=== PATIENT | female | born 1995 | race Two or more races ===

== ENCOUNTER 2020-08-27 21:35 | Inpatient (IN) | payer OTHER ==
[2020-08-27] MEDS ORDERED: ELECTROLYTE-148 SOLN 1,000 ML IV SCH (23:30)
[2020-08-28 00:46] LABS: BASO % 0.1 % (0-2.0); EOS % 0.9 % (0-4.5); HEMATOCRIT 33.1 % (32.4-45.2); LYMPH % 25.6 % (8-40); MCH 27.5 pg (25.7-33.7); MCHC 33.3 g/dl (32.0-36.0); MEAN CELL VOLUME 82.7 fl (80-96); MEAN PLT VOLUME 11.1 fl (7.5-11.1); NEUT % 66.4 % (42.8-82.8); PLATELET COUNT 168 K/MM3 (134-434); RDW 13.8 % (11.6-15.6); WHITE BLOOD COUNT 10.6 K/mm3 (4.0-10.0)
[2020-08-28] MEDS ORDERED: METHYLERGONOVINE MALEATE 0.2 MG/1 ML AMP IM PRN (00:58)
[2020-08-28] MEDS ORDERED: BENZOCAINE 20% 57 GM BOTTLE TP PRN (00:58)
[2020-08-28] MEDS ORDERED: diphenhydrAMINE HCL 25 MG CAPSULE (FP) PO PRN (00:58)
[2020-08-28] MEDS ORDERED: BENZOCAINE 28 GM HEMORRHOIDAL OINTMENT PR PRN (00:58)
[2020-08-28] MEDS ORDERED: WITCH HAZEL 50% (TUCKS) 40 PAD/JAR PAD TP PRN (00:58)
[2020-08-28 01:11] LABS: BLOOD UREA NITROGEN 11.8 mg/dL (7-18); CALCIUM 8.6 mg/dL (8.5-10.1)
[2020-08-28 01:15] LABS: CREATININE 0.7 mg/dL (0.55-1.3)
[2020-08-28] MEDS ORDERED: CEFAZOLIN 2 GM/D5W 2 GM/50 ML ML IVPB ONE (01:25)
[2020-08-28] MEDS ORDERED: morphine SULFATE/PF 1 MG/2 ML (2cc Syringe - QUVA) ONE (01:27)
[2020-08-28] MEDS ORDERED: OXYTOCIN 10 UNITS/ML VIAL ONE (01:49)
[2020-08-28] MEDS ORDERED: ONDANSETRON 4 MG/2 ML VIAL ONE (01:49)
[2020-08-28] MEDS: OXYTOCIN 20 UNITS in 0.9% NS 20 UNIT/1,000 ML INFUS.BAG IV SCH ×2 (01:55→09:45)
[2020-08-28] MEDS ORDERED: AZITHROMYCIN IVPB 500 MG/250 ML BAG IVPB ONE (01:58)
[2020-08-28 02:39] VITALS: BMI 28.2
[2020-08-28 02:39] LABS: CORD BASE EXCESS -1.8 mmol/L (0-2); CORD BASE EXCESS -2.8 mmol/L (0-2); CORD HCO3 23.6 mmHg (20-29); CORD HCO3 24.7 mmHg (20-29); CORD PCO2 47.5 mmHg (30-78); CORD PCO2 48.9 mmHg (30-78); CORD pH 7.314 (7.14-7.44); CORD pH 7.321 (7.14-7.44)
[2020-08-28] MEDS ORDERED: OXYTOCIN 20 UNITS in 0.9% NS 20 UNIT/1,000 ML INFUS.BAG IV ONE (03:20)
[2020-08-28 03:46] LABS: HIV INTERPRETATION NEGATIVE (NEGATIVE)
[2020-08-28] MEDS: IBUPROFEN 800 MG/8 ML IJ IVPB PRN ×2 (04:59→12:53)
[2020-08-28 08:30] LABS: INR 0.88 (0.83-1.09); PROTHROMBIN TIME (PATIENT) 10.9 SEC (9.7-13.0)
[2020-08-28] MEDS: SIMETHICONE 80 MG TAB.CHEW (FP) PO PRN ×2 (12:54→18:56)
[2020-08-28] MEDS: ACETAMINOPHEN 325 MG TABLET (FP) PO PRN (18:55)
[2020-08-28] MEDS: IBUPROFEN 600 MG TABLET (FP) PO PRN (18:56)
[2020-08-29] MEDS ORDERED: oxyCODONE HCL 5 MG TABLET PO PRN (00:58)
[2020-08-29] MEDS ORDERED: BISACODYL 10 MG SUPP.RECT PR PRN (00:58)
[2020-08-29] MEDS ORDERED: HYDROmorphone HCL 2 MG TABLET PO PRN (00:58)
[2020-08-29] MEDS: ACETAMINOPHEN 325 MG TABLET (FP) PO PRN ×2 (06:35→21:27)
[2020-08-29] MEDS: SIMETHICONE 80 MG TAB.CHEW (FP) PO PRN ×4 (06:36→21:28)
[2020-08-29] MEDS: OXYTOCIN 20 UNITS in 0.9% NS 20 UNIT/1,000 ML INFUS.BAG IV SCH (07:25)
[2020-08-29 09:32] LABS: HEMATOCRIT 31.2 % (32.4-45.2); HEMOGLOBIN 10.4 GM/dL (10.7-15.3); MCH 27.9 pg (25.7-33.7); MCHC 33.2 g/dl (32.0-36.0); MEAN CELL VOLUME 83.8 fl (80-96); MEAN PLT VOLUME 10.4 fl (7.5-11.1); PLATELET COUNT 155 K/MM3 (134-434); RBC 3.72 M/mm3 (3.60-5.2); WHITE BLOOD COUNT 10.6 K/mm3 (4.0-10.0)
[2020-08-29] MEDS: IBUPROFEN 600 MG TABLET (FP) PO PRN ×3 (10:12→21:26)
[2020-08-29] MEDS: oxyCODONE HCL 5 MG TABLET PO PRN ×2 (10:12→17:27)
[2020-08-30] MEDS: OXYTOCIN 20 UNITS in 0.9% NS 20 UNIT/1,000 ML INFUS.BAG IV SCH (07:00)
[2020-08-30] MEDS: IBUPROFEN 600 MG TABLET (FP) PO PRN (07:36)
[2020-08-30] MEDS: ACETAMINOPHEN 325 MG TABLET (FP) PO PRN (07:37)
[2020-08-30 09:14] VITALS: TEMP 98.2
[2020-08-30 09:43] LABS: HEMATOCRIT 32.3 % (32.4-45.2); MCH 28.1 pg (25.7-33.7); MEAN CELL VOLUME 82.5 fl (80-96); MEAN PLT VOLUME 9.8 fl (7.5-11.1); PLATELET COUNT 194 K/MM3 (134-434); RBC 3.91 M/mm3 (3.60-5.2); RDW 13.8 % (11.6-15.6); WHITE BLOOD COUNT 10.5 K/mm3 (4.0-10.0)
[2020-08-30 12:24] VITALS: BP 114/76; PULSE 72
[2020-08-30] MEDS ORDERED: SENNOSIDES/DOCUSATE COMBO (SENNA PLUS) TABLET (UD) PO PRN (22:00)
== END 2020-08-30 12:40 | disposition home or self-care (01) | DRG 540 ==
LOC: JDEL 21:35 → JLDR 23:14 → J3W 08-28 04:26
PROVIDERS: ADMIT Obstetrics & Gynecology; ATTEND Obstetrics & Gynecology
PROC: 10D00Z1 Extraction of Products of Conception, Low, Open Approach (ICD-10-PCS; principal; 2020-08-28)
DX: O32.1XX0 Maternal care for breech presentation, not applicable or unspecified (principal); O42.02 Full-term premature rupture of membranes, onset of labor within 24 hours of rupture; Z3A.37 37 weeks gestation of pregnancy; Z37.0 Single live birth
CPT/HCPCS: 36415; 36600; 80048; 82803; 85025; 85027; 85461; 85610; 85730; 86780; 86850; 86870; 86900; 86901; 86902; 86999; 87389; 88307-TC; C9803; U0003

== ENCOUNTER 2022-03-12 05:55 | Inpatient (IN) | payer OTHER ==
[2022-03-12 06:32] VITALS: BMI 36.6
[2022-03-12] MEDS ORDERED: METHYLERGONOVINE MALEATE 0.2 MG/1 ML AMP IM PRN (07:56)
[2022-03-12] MEDS ORDERED: WITCH HAZEL 50% (TUCKS) 40 PAD/JAR PAD TP PRN (07:56)
[2022-03-12] MEDS ORDERED: ACETAMINOPHEN 325 MG TABLET (FP) PO PRN (07:56)
[2022-03-12] MEDS ORDERED: IBUPROFEN 800 MG/8 ML IJ IVPB PRN (07:56)
[2022-03-12] MEDS ORDERED: ELECTROLYTE-148 SOLN 1,000 ML IV SCH (08:00)
[2022-03-12] MEDS ORDERED: ONDANSETRON 4 MG/2 ML VIAL ONE (08:31)
[2022-03-12] MEDS ORDERED: PHENYLEPHRINE HCL 10 MG/1 ML SINGLE DOSE VIAL ONE (08:31)
[2022-03-12] MEDS ORDERED: KETOROLAC TROMETHAMINE 30 MG/1 ML VIAL ONE (08:31)
[2022-03-12] MEDS ORDERED: OXYTOCIN 10 UNITS/ML VIAL ONE (08:31)
[2022-03-12] MEDS ORDERED: morphine SULFATE/PF 1 MG/2 ML (2cc Syringe - QUVA) ONE (08:31)
[2022-03-12] MEDS ORDERED: ceFAZolin SODIUM 1 GM VIAL ONE (08:32)
[2022-03-12] MEDS ORDERED: ONDANSETRON 4 MG/2 ML VIAL IVPUSH PRN (10:48)
[2022-03-12 11:04] LABS: CORD BASE EXCESS -1.3 mmol/L (0-2); CORD HCO3 24.1 mmHg (20-29); CORD pH 7.367 (7.14-7.44)
[2022-03-12 11:07] LABS: CORD PCO2 58.1 mmHg (30-78); CORD pH 7.268 (7.14-7.44)
[2022-03-12] MEDS ORDERED: OXYTOCIN 20 UNITS in 0.9% NS 20 UNIT/1,000 ML INFUS.BAG IV ONE (11:45)
[2022-03-12] MEDS: OXYTOCIN 20 UNITS in 0.9% NS 20 UNIT/1,000 ML INFUS.BAG IV SCH ×2 (11:49→18:53)
[2022-03-12] MEDS: FERROUS SO4 325 MG TABLET (FP) PO SCH ×2 (11:49→21:50)
[2022-03-12] MEDS: PRENATAL VITAMINS W/ FOLIC ACID TABLET (FP) PO SCH (11:49)
[2022-03-12 14:13] LABS: METHADONE, UR NEGATIVE (NEGATIVE); OPIATES, URI NEGATIVE (NEGATIVE); URINE BARBITURATES NEGATIVE (NEGATIVE)
[2022-03-12 14:14] LABS: PHENCYCLIDINE,URINE NEGATIVE (NEGATIVE); URINE BENZODIAZEPINES NEGATIVE (NEGATIVE)
[2022-03-12 14:15] LABS: COCAINE, UR NEGATIVE (NEGATIVE); URINE AMPHETAMINES NEGATIVE (NEGATIVE)
[2022-03-13] MEDS: SIMETHICONE 80 MG TAB.CHEW (FP) PO PRN ×3 (06:24→20:20)
[2022-03-13] MEDS: IBUPROFEN 600 MG TABLET (FP) PO PRN ×3 (06:24→20:21)
[2022-03-13] MEDS ORDERED: BISACODYL 10 MG SUPP.RECT RC PRN (07:56)
[2022-03-13 08:31] LABS: BASO % 0.2 % (0-2.0); EOS % 0.8 % (0-4.5); HEMATOCRIT 29.9 % (32.4-45.2); HEMOGLOBIN 10.1 GM/dL (10.7-15.3); LYMPH % 16.9 % (8-40); MCH 25.8 pg (25.7-33.7); MCHC 33.8 g/dl (32.0-36.0); MEAN CELL VOLUME 76.3 fl (80-96); MEAN PLT VOLUME 9.4 fl (7.5-11.1); MONO % 6.9 % (3.8-10.2); NEUT % 75.2 % (42.8-82.8); PLATELET COUNT 156 10^3/uL (134-434); RBC 3.92 M/mm3 (3.60-5.2); RDW 14.2 % (11.6-15.6); WHITE BLOOD COUNT 9.2 K/mm3 (4.0-10.0)
[2022-03-13] MEDS ORDERED: oxyCODONE HCL 5 MG TABLET PO PRN ×2 (10:00)
[2022-03-13] MEDS ORDERED: ENOXAPARIN NA (PORCINE) 30 MG/0.3 ML DISP.SYRIN SQ SCH (10:00)
[2022-03-13] MEDS: PRENATAL VITAMINS W/ FOLIC ACID TABLET (FP) PO SCH (10:20)
[2022-03-13] MEDS: FERROUS SO4 325 MG TABLET (FP) PO SCH ×2 (10:20→21:53)
[2022-03-13 15:22] VITALS: RESP 18
[2022-03-14] MEDS: IBUPROFEN 600 MG TABLET (FP) PO PRN ×3 (06:17→21:22)
[2022-03-14] MEDS: SIMETHICONE 80 MG TAB.CHEW (FP) PO PRN ×3 (06:17→21:22)
[2022-03-14] MEDS: FERROUS SO4 325 MG TABLET (FP) PO SCH ×2 (11:19→21:21)
[2022-03-14] MEDS: PRENATAL VITAMINS W/ FOLIC ACID TABLET (FP) PO SCH (11:19)
[2022-03-15 09:15] LABS: BASO % 0.7 % (0-2.0); EOS % 2.2 % (0-4.5); HEMOGLOBIN 10.1 GM/dL (10.7-15.3); LYMPH % 31.5 % (8-40); MCH 26.3 pg (25.7-33.7); MCHC 33.7 g/dl (32.0-36.0); MEAN PLT VOLUME 9.6 fl (7.5-11.1); NEUT % 59.6 % (42.8-82.8); PLATELET COUNT 208 10^3/uL (134-434); RBC 3.84 M/mm3 (3.60-5.2); RDW 14.6 % (11.6-15.6); WHITE BLOOD COUNT 9.5 K/mm3 (4.0-10.0)
[2022-03-15] MEDS: PRENATAL VITAMINS W/ FOLIC ACID TABLET (FP) PO SCH (10:03)
[2022-03-15] MEDS: IBUPROFEN 600 MG TABLET (FP) PO PRN (10:03)
[2022-03-15] MEDS: SIMETHICONE 80 MG TAB.CHEW (FP) PO PRN (10:03)
[2022-03-15] MEDS: FERROUS SO4 325 MG TABLET (FP) PO SCH (10:03)
[2022-03-15 10:14] VITALS: BP 100/66; PULSE 62; TEMP 98.7
== END 2022-03-15 16:15 | disposition home or self-care (01) | DRG 540 ==
LOC: JLDR 05:55 → J3W 12:25
PROVIDERS: ADMIT Obstetrics & Gynecology; ATTEND Obstetrics & Gynecology
PROC: 10D00Z1 Extraction of Products of Conception, Low, Open Approach (ICD-10-PCS; principal; 2022-03-13)
DX: O34.219 Maternal care for unspecified type scar from previous cesarean delivery (principal); Z3A.39 39 weeks gestation of pregnancy; Z37.0 Single live birth
CPT/HCPCS: 36415; 36600; 80048; 80307; 81003; 82803; 85025; 85461; 85610; 85730; 86780; 86850; 86870; 86900; 86901; 86902; 86999; 88307-TC; C9803-CS; U0003; U0005

== ENCOUNTER 2024-02-26 18:03 | Emergency (ER) | payer OTHER ==
[2024-02-26 18:12] VITALS: BP 118/82; PULSE 86; RESP 18; TEMP 98.3; BMI 33.7
[2024-02-26] MEDS ORDERED: IBUPROFEN 600 MG TABLET (FP) PO ONE (18:55)
[2024-02-26] MEDS: IBUPROFEN 600 MG TABLET (FP) PO ONE (18:56)
== END 2024-02-26 19:22 | disposition home or self-care (01) ==
LOC: JERFT 18:03
DX: M79.675 Pain in left toe(s) (principal); M25.572 Pain in left ankle and joints of left foot; X50.1XXA Overexertion from prolonged static or awkward postures, initial encounter
CPT/HCPCS: 73610-TC-LT-FY; 73630-TC-LT; 99283-25